=== PATIENT | female | born 2000 ===

== ENCOUNTER 2021-10-22 08:40 | Outpatient (CLI) | payer OTHER | END 2021-10-22 09:45 | disposition home or self-care (01) | LOC: PRENATAL 08:40 | PROVIDERS: ATTEND Obstetrics & Gynecology Maternal & Fetal Medicine | DX: O36.80X0 Pregnancy with inconclusive fetal viability, not applicable or unspecified (principal); Z3A.14 14 weeks gestation of pregnancy; Z36.0 Encounter for antenatal screening for chromosomal anomalies; O99.210 Obesity complicating pregnancy, unspecified trimester ==

== ENCOUNTER 2021-12-05 12:32 | Outpatient (CLI) | payer OTHER | END 2021-12-05 14:15 | disposition home or self-care (01) | LOC: PRENATAL 12:32 | PROVIDERS: ATTEND Obstetrics & Gynecology Maternal & Fetal Medicine | DX: O35.0XX0 Maternal care for (suspected) central nervous system malformation in fetus, not applicable or unspecified (principal); O99.210 Obesity complicating pregnancy, unspecified trimester; O34.219 Maternal care for unspecified type scar from previous cesarean delivery; Z3A.20 20 weeks gestation of pregnancy ==

== ENCOUNTER 2022-04-11 08:45 | Inpatient (IN) | payer OTHER ==
[~2022-04-11] VITALS: Ht 157.5 cm; Wt 98.9 kg
[2022-04-15] MEDS ORDERED: PRENATAL + DHA1 EAC1 PO (17:55)
== END 2022-04-17 13:52 | disposition home or self-care (01) | DRG 788 ==
LOC: OB/GYN 04-15 08:45 → O/R 04-15 16:54 → LDR 04-15 16:54 → O/R 04-15 17:27 → OB/GYN 04-15 19:50
PROVIDERS: ADMIT Obstetrics & Gynecology; ATTEND Obstetrics & Gynecology
PROC: 0DNW0ZZ Release Peritoneum, Open Approach (ICD-10-PCS; 2022-04-15)
PROC: 4A1HXCZ Monitoring of Products of Conception, Cardiac Rate, External Approach (ICD-10-PCS; 2022-04-15)
PROC: 10D00Z1 Extraction of Products of Conception, Low, Open Approach (ICD-10-PCS; principal; 2022-04-15 17:00)
DX: O34.211 Maternal care for low transverse scar from previous cesarean delivery (principal); O99.214 Obesity complicating childbirth; O99.892 Other specified diseases and conditions complicating childbirth; N73.6 Female pelvic peritoneal adhesions (postinfective); E66.8 Other obesity; Z3A.38 38 weeks gestation of pregnancy; Z37.0 Single live birth